=== PATIENT | male | born 1945 | race Caucasian/White ===

== ENCOUNTER 2019-10-10 09:11 | Day surgery (SDC) | payer OTHER, MEDICARE ==
[2019-10-07 15:06] VITALS: BMI 24.0
[2019-10-10 10:52] VITALS: TEMP 97.1
[2019-10-10 11:44] VITALS: BP 127/82; PULSE 98
--- NOTE | 2019-10-13 17:28 | PATH ---
Surgical Pathology Report Patient Name: DANIE VARGHESE [facility]. Rec. #: [id number] /Age/Gender: 1945 (Age: 74) / M Account: [id number] Location: [facility]-ENDOSCOPY Taken: 10/10/2019 Received: 10/10/2019 Reported: 10/13/2019 Physicians: Lucie John M.D. Specimen(s) Received A: DISTAL TRANVERSE COLON POLYPS B: RIGHT COLON POLYPS C: PROXIMAL TRANSVERSE COLON POLYP Clinical History Adenoma surveillance Postoperative diagnosis: Colon polyps Final Diagnosis A. DISTAL TRANSVERSE COLON, POLYPS, POLYPECTOMY: TUBULAR ADENOMA. HYPERPLASTIC POLYP(S). B. COLON, RIGHT, POLYPS, POLYPECTOMY: TUBULAR ADENOMA(S). C. PROXIMAL TRANSVERSE COLON, POLYP, POLYPECTOMY: POLYPOID COLONIC MUCOSA WITHOUT SIGNIFICANT PATHOLOGIC FINDINGS. Electronically Signed Yasmine Yañez M.D. Gross Description A. Received in formalin, labeled "distal transverse colon polyp" are 3 hurtado, irregular portions of soft tissue ranging from 0.3-0.5 cm. in greatest dimension. The specimens are submitted in toto in one cassette. B. Received in formalin, labeled "right colon polyp" are 4 hurtado, irregular to polypoid portions of soft tissue ranging from 0.3-0.6 cm. in greatest dimension. The specimens are submitted in toto in one cassette. C. Received in formalin, labeled "biopsy proximal transverse colon polyp" is a hurtado, irregular portion of soft tissue measuring 0.4 cm. in greatest dimension. The specimen is submitted in toto in one cassette. /10/10/2019 saudi/10/10/2019
== END 2019-10-10 12:10 | disposition home or self-care (01) ==
LOC: JASU-ENDO 09:11
PROVIDERS: ATTEND Internal Medicine Gastroenterology
PROC: 0DBL8ZX Excision of Transverse Colon, Via Natural or Artificial Opening Endoscopic, Diagnostic (ICD-10-PCS; 2019-10-10)
PROC: 0DBK8ZX Excision of Ascending Colon, Via Natural or Artificial Opening Endoscopic, Diagnostic (ICD-10-PCS; principal; 2019-10-10 10:00)
DX: Z12.11 Encounter for screening for malignant neoplasm of colon (principal); Z86.010 Personal history of colon polyps; K64.8 Other hemorrhoids; D12.2 Benign neoplasm of ascending colon; D12.3 Benign neoplasm of transverse colon; J44.9 Chronic obstructive pulmonary disease, unspecified; I10 Essential (primary) hypertension; I48.91 Unspecified atrial fibrillation; Z79.01 Long term (current) use of anticoagulants
CPT/HCPCS: 88305-TC